=== PATIENT | male | born 1985 | race Hispanic/Latino ===

== ENCOUNTER 2024-06-04 22:16 | Emergency (ER) | payer OTHER, BC ==
[~2024-06-04] VITALS: Ht 180.3 cm; Wt 122.5 kg
[2024-06-04] MEDS: ONDANSETRON 4MG INJ IVP STA (23:21)
[2024-06-04] MEDS: MORPHINE 2 MG SYG IVP STA (23:22)
[2024-06-04 23:24] LABS: BASOPHILS # (AUTO) 0.08 K/uL (0.00-0.20); BASOPHILS % (AUTO) 0.5 % (0.0-5.0); EOSINOPHILS # (AUTO) 0.28 K/uL (0.00-0.70); EOSINOPHILS % (AUTO) 1.6 % (0.0-8.0); HEMATOCRIT 40.2 % (42-54); IMMATURE GRANULOCYTE ABSOLUTE 0.06 K/uL (0-1); LYMPHOCYTES # (AUTO) 2.1 K/uL (1.0-4.8); LYMPHOCYTES % (AUTO) 12.1 % (21.0-51.0); MEAN CORPUSCULAR HEMOGLOBIN 29.1 pg (27.0-33.0); MEAN CORPUSCULAR HGB CONC 33.8 g/dL (32.0-36.0); MEAN CORPUSCULAR VOLUME 86.1 fL (79-99); MONOCYTES # (AUTO) 1.2 K/uL (0.1-1.0); MONOCYTES % (AUTO) 6.9 % (3.0-13.0); NEUTROPHILS # (AUTO) 13.3 K/uL (1.8-7.7); NEUTROPHILS % (AUTO) 78.5 % (40.0-77.0); PLATELET COUNT (AUTO) 220 K/uL (130-400); RED BLOOD CELL COUNT(AUTO) 4.67 MIL/uL (4.50-6.20)
[2024-06-04 23:32] LABS: CREATININE 1.2 mg/dL (0.5-1.3)
[2024-06-05] MEDS: KETOROLAC 15MG/ML VIAL (15MG/ML) IV STA (01:47)
[2024-06-05 02:27] VITALS: BP 134/81; PULSE 96; RESP 18; O2SAT 99
== END 2024-06-05 02:29 | disposition home or self-care (01) ==
LOC: EDH 22:16
DX: S20.219A Contusion of unspecified front wall of thorax, initial encounter (principal); S63.591A Other specified sprain of right wrist, initial encounter; R51.9 Headache, unspecified; Z91.013 Allergy to seafood; V89.2XXA Person injured in unspecified motor-vehicle accident, traffic, initial encounter; Y93.89 Activity, other specified; Y92.488 Other paved roadways as the place of occurrence of the external cause; Y99.8 Other external cause status
CPT/HCPCS: 99285; 70450; 96374; 71045; 96375 ×2; 84484; 80048; 85025; 36415; 72170; 72125; 71250; 74176; 93005; 73100; J2270; J2405; J1885